=== PATIENT | female | born 1970 | race Caucasian/White ===

== ENCOUNTER 2018-11-12 22:47 | Emergency (ER) | payer SELFPAY ==
[~2018-11-12] VITALS: Ht 167.6 cm; Wt 63.5 kg
[2018-11-12 22:54] VITALS: BP 135/65
== END 2018-11-12 23:51 | disposition left against medical advice (07) ==
LOC: ER 22:47 → EDBD 22:47 → ER 23:51
DX: R52 Pain, unspecified (principal); Z53.21 Procedure and treatment not carried out due to patient leaving prior to being seen by health care provider